=== PATIENT | female | born 1985 | race Two or more races ===

== ENCOUNTER 2022-07-27 02:35 | Emergency (ER) | payer OTHER ==
[~2022-07-27] VITALS: Ht 172.7 cm; Wt 63.5 kg
[2022-07-27 02:43] VITALS: BP 113/68
--- NOTE | 2022-07-27 02:48 | NUR ---
TO LOBBY FOLLOWING TRIAGE
--- NOTE | 2022-07-27 03:00 | NUR ---
pt awake and alert complaining nasauted. pt is tamazight speaker. she seems anxious. had some vommiting eralier in the er. is at the bedside
--- NOTE | 2022-07-27 03:57 | NUR ---
PT TO BED 4
[2022-07-27] MEDS ORDERED: ONDANSETRON 4 MG TAB PO ONE (04:20)
[2022-07-27 05:04] LABS: APPEARANCE,URINE CLEAR (CLEAR); BILIRUBIN,URINE NEGATIVE (NEGATIVE); BLOOD, URINE NEGATIVE (NEGATIVE); COLOR,URINE YELLOW (YELLOW); LEUKOCYTE ESTERASE ,URINE NEGATIVE (NEGATIVE); NITRITE, URINE NEGATIVE (NEGATIVE); PH,URINE 7.5 (5.0-9.0); UGLUCOSE NEGATIVE (NEGATIVE)
[2022-07-27] MEDS ORDERED: ONDA-188 SL (05:34)
[2022-07-27 06:15] VITALS: BP 113/68
--- NOTE | 2022-07-27 06:40 | NUR ---
Patient discharged with v/s stable. Written and verbal after care instructions given and explained. Patient verbalized understanding. Ambulatory with steady gait. All questions addressed prior to discharge. Advised to follow up with PMD. pt went with her melanie.
== END 2022-07-27 05:50 | disposition home or self-care (01) ==
LOC: MED 02:35
DX: A08.4 Viral intestinal infection, unspecified (principal); Z79.899 Other long term (current) drug therapy
CPT/HCPCS: 81003; 99283; Q0162

== ENCOUNTER 2022-10-08 10:06 | Emergency (ER) | payer OTHER ==
[~2022-10-08] VITALS: Ht 170.2 cm; Wt 62.6 kg
[~2022-10-08 10:06] MED LIST: ONDA-188 SL
[2022-10-08 10:20] VITALS: BP 121/73
--- NOTE | 2022-10-08 10:40 | NUR ---
36 y/o F BIB from home c/o nausea, vomiting x 2 episodes since this morning. Pt A&Ox4, ambulatory, states feeling nausea while driving to work this morning. With two episodes no blood in emesis. States epigastric pain after vomiting, however, subsided. Denies abd pain, fever, chills, dizziness, dysuria. LMP: 3 weeks ago. PMH/Sx/Meds: Denies NKDA
[2022-10-08] MEDS ORDERED: ONDANSETRON 4 MG ODT PO ONE (11:15)
[2022-10-08] MEDS ORDERED: ONDA-188 SL (12:17)
--- NOTE | 2022-10-08 12:22 | NUR ---
Patient discharged with v/s stable. Written and verbal after care instructions given and explained for Viral Gastroenteritis, Adult. Patient alert, oriented and verbalized understanding of instructions. Ambulatory with steady gait. All questions addressed prior to discharge. ID band removed. Patient advised to follow up with PMD. Rx of Zofran ODT given. Patient educated on indication of medication including possible reaction and side effects. Opportunity to ask questions provided and answered.
== END 2022-10-08 12:22 | disposition home or self-care (01) ==
LOC: MED 10:06
DX: K52.9 Noninfective gastroenteritis and colitis, unspecified (principal)
CPT/HCPCS: 81025; 99283; Q0162

== ENCOUNTER 2022-10-24 15:43 | Emergency (ER) | payer OTHER ==
[~2022-10-24] VITALS: Ht 170.2 cm; Wt 61.2 kg
[2022-10-24 16:02] VITALS: BP 111/81
[2022-10-24] MEDS ORDERED: ALUMINUM HYD/MAG/SIMETHICONE 30 ML UDC PO ONE (17:20)
[2022-10-24] MEDS ORDERED: FAMOTIDINE 20 MG TAB PO ONE (17:20)
--- NOTE | 2022-10-24 18:27 | NUR ---
Pt bibs, referred from urgent care, for possible h pylori. Pt has had epigastric pain x 2 weeks. Pt states it is constant. Pt has no issue voiding or passing stool. Pt is a/o x 4, vss, no ss of acute distress, breathing equal and unlabored, speech clear. Urine sampled for hcg.
[2022-10-24 18:31] VITALS: BP 118/83
[2022-10-24] MEDS ORDERED: ALUM355S5 PO (18:51)
[2022-10-24] MEDS ORDERED: METO-485 PO (18:51)
[2022-10-24] MEDS ORDERED: ONDA-188 SL (18:51)
== END 2022-10-24 19:03 | disposition home or self-care (01) ==
LOC: MED 15:43
DX: R10.13 Epigastric pain (principal); R11.2 Nausea with vomiting, unspecified; R19.7 Diarrhea, unspecified; Z88.2 Allergy status to sulfonamides
CPT/HCPCS: 81025; 99282